=== PATIENT | male | born 1960 | race Caucasian/White ===

== ENCOUNTER 2018-07-22 16:02 | Emergency (ER) | payer OTHER, SELFPAY ==
[2018-07-22 16:05] VITALS: BP 145/76; PULSE 61; RESP 15; O2SAT 97; BMI 31.5
--- NOTE | 2018-07-22 16:20 | ED.WOUNDLAC ---
HPI - Wound/Laceration <Sandhya Schumacher PA-C - Last Filed: 07/22/18 21:04> General Chief Complaint: Wound/Laceration Stated Complaint: LT HAND INJURY Time Seen by Provider: 07/22/18 16:36 Source: patient Mode of arrival: ambulatory Limitations: no limitations History of Present Illness HPI narrative: This 58-year-old gentleman sustained a small cut several hours ago while he was here in the ED changing a bulb in the blanket warmer. He states this was shallow and he just put a Band-Aid on it, has not bled much, however shortly after when he stretched and closed his hand, he felt a crampy, popping sensation, then was not able to fully move his middle finger due to weakness, and painful with some movements. He denies any other injury. Last tetanus vaccine 2013 Related Data Allergies Allergy/AdvReac Type Severity Reaction Status Date / Time No Known Drug Allergies Allergy Verified 07/22/18 16:05 Review of Systems <Sandhya Schumacher PA-C - Last Filed: 07/22/18 21:04> Review of Systems ROS Unobtainable: All systems reviewed & are unremarkable except as noted in HPI and below PFSH <Sandhya Schumacher PA-C - Last Filed: 07/22/18 21:04> Medical History (Updated 07/22/18 @ 18:46 by Sandhya Schumacher PA-C) Benign familial tremor (Chronic) Surgical History (Updated 07/22/18 @ 17:45 by Sandhya Schumacher PA-C) History of carpal tunnel surgery of right wrist (Resolved) Status post eye surgery (Resolved) Social History Smoking Status: Never smoker Social History Smoking Status: Never smoker Exam <Sandhya Schumacher PA-C - Last Filed: 07/22/18 21:04> Narrative Exam Narrative: GENERAL APPEARANCE: Patient sitting comfortably, in no distress. LUNGS: Clear to auscultation bilaterally. HEART: Rate and rhythm regular without murmur, normal S1 and S2, no S3 or S4. MUSCULOSKELETAL: Left wrist no tenderness to palpation, full range of motion. Mild tenderness over the left distal 3rd metacarpal, no tenderness elsewhere over the hand or fingers. He can fully extend and flex all of the fingers. Strength is intact in all fingers all carias against resistance aside from unable to deviate or resist the middle finger medially. No joint effusion. DERMATOLOGIC: There is a 1 cm nonbleeding laceration at the 3/4 MCP joint on the dorsal surface of the hand. NEUROVASCULAR: Left hand fingers are warm and pink, sensation grossly intact Initial Vital Signs Initial Vital Signs: Vital Signs Pulse Rate 61 07/22/18 16:05 Respiratory Rate 15 07/22/18 16:05 Blood Pressure 145/76 H 07/22/18 16:05 Pulse Oximetry 97 07/22/18 16:05 <Alejandra Gamez MD - Last Filed: 07/24/18 08:37> Initial Vital Signs Initial Vital Signs: Vital Signs Pulse Rate 61 07/22/18 16:05 Respiratory Rate 15 07/22/18 16:05 Blood Pressure 145/76 H 07/22/18 16:05 Pulse Oximetry 97 07/22/18 16:05 Course <Sandhya Schumacher PA-C - Last Filed: 07/22/18 21:04> Additional Information: I spoke with on-call orthopedist Dr. Adrian and reviewed findings. The small laceration appears to be less than 2 mm deep, I am not able to pull it open even with pressure. He does have ecchymoses starting to appear around the area prior to discharge. Reviewed exam finding of limited medial deviation of the finger but intact another carias including flexion/extension against resistance. He advised likely due to contusion, likely to peak in the next 72 hours and then start to improve. He did advise follow-up with PCP and Ortho referral after 5-7 days if not resolving. He advised not splinting this for now and use as tolerated. Reviewed this with patient who is agreeable. Return precautions given including for infection. Orders Ordered: Discontinued Medications Diphtheria/Tetanus/Acell Pertussis (Adacel) 0.5 ml IM .ONCE ONE Stop: 07/22/18 17:46 Last Admin: 07/22/18 17:53 Dose: Not Given Vital Signs - 8 hr 07/22/18 16:05 Pulse Rate 61 Respiratory Rate 15 Blood Pressure 145/76 H Pulse Oximetry 97 <Alejandra Gamez MD - Last Filed: 07/24/18 08:37> Orders Ordered: Discontinued Medications Diphtheria/Tetanus/Acell Pertussis (Adacel) 0.5 ml IM .ONCE ONE Stop: 07/22/18 17:46 Last Admin: 07/22/18 17:53 Dose: Not Given Vital Signs - 8 hr 07/22/18 16:05 Pulse Rate 61 Respiratory Rate 15 Blood Pressure 145/76 H Pulse Oximetry 97 MDM - Wound/Laceration <Sandhya Schumacher PA-C - Last Filed: 07/22/18 21:04> Imaging Data hand: Radiologist's impression: [address] [address] XRay Report Signed Patient: Kj Tenorio WMR#: [id number] : 9Acct:[id number] Age/Sex: 58 / MDate of Service: 07/22/18 Loc: ED Accession Number: [id number] Procedure: XR hand LT min 3V Ordering Provider: Sandhya Schumacher P.A-C PROCEDURE: XR HAND LT MIN 3V INDICATIONS: pain after closing hand, unable to move L. MF medially TECHNIQUE: 3 views of the hand(s) acquired. COMPARISON: None. FINDINGS: Bones: No fractures or dislocations. Carpal bones are normally aligned. No suspicious bony lesions. Soft tissues: No suspicious soft tissue calcifications. 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 No fracture found, no erosive arthritis is suspected. Note: The patient reported to the plain film technologist that laceration injury to the third metacarpal-phalangeal joint area has occurred and that he believes he may have injured a tendon. Malalignment from complete tendon laceration is not identified. Depending on the clinical status hand specialist consultation may be warranted and followup by MR scanning may be indicated. Dictated by: John Paul Jovel M.D. on 07/22/2018 at 17:32 Approved by: John Paul Jovel M.D. on 07/22/2018 at 17:34 Discharge Plan Departure Patient Disposition: Home Clinical Impression: Injury of tendon of finger Laceration of hand Qualifiers: Encounter type: initial encounter Foreign body presence: without foreign body Laterality: left Qualified Code(s): S61.412A - Laceration without foreign body of left hand, initial encounter Contusion of hand, left Qualifiers: Encounter type: initial encounter Qualified Code(s): S60.222A - Contusion of left hand, initial encounter Discharge Date/Time: 07/22/18 18:52 Interventions: ED Discharge Assessment Last Done: 07/22/18 18:52 Instructions: DI for Finger Sprain, DI for Minor Laceration Activity Restrictions/Additional Instructions: I spoke with the orthopedic doctor on-call and given the difficulty you have only with moving your finger to the side, he thinks you have probably strained or bumped the tendon causing some temporary inflammation that should peak in the next 2 or 3 days and then start to get better. Your wound appears to be superficial. You can continue ibuprofen every 8 hours for pain and add Tylenol as needed. Monitor the cut for any signs of infection such as increasing redness, draining pus, worsening pain and swelling, or fever and return or see your PCP right away if any. Also if you find you are unable to extend and flex the finger, then you should be seen by your PCP right away. Your PCP should reassess this with you in 5-7 days, and you should see Orthopedics if this is not getting better. Referrals: Romy Ahumada PA-C [[employer]] - Shakir Adrian MD [Physician] -
--- NOTE | 2018-07-22 16:47 | DI.RAD.S_ITS ---
PROCEDURE: XR HAND LT MIN 3V INDICATIONS: pain after closing hand, unable to move L. MF medially TECHNIQUE: 3 views of the hand(s) acquired. COMPARISON: None. FINDINGS: Bones: No fractures or dislocations. Carpal bones are normally aligned. No suspicious bony lesions. Soft tissues: No suspicious soft tissue calcifications. 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 No fracture found, no erosive arthritis is suspected. Note: The patient reported to the plain film technologist that laceration injury to the third metacarpal-phalangeal joint area has occurred and that he believes he may have injured a tendon. Malalignment from complete tendon laceration is not identified. Depending on the clinical status hand specialist consultation may be warranted and followup by MR scanning may be indicated. Dictated by: John Paul Jovel M.D. on 07/22/2018 at 17:32 Approved by: John Paul Jovel M.D. on 07/22/2018 at 17:34
== END 2018-07-22 18:52 | disposition home or self-care (01) ==
PROVIDERS: Emergency Provider Internal Medicine; Family Provider Physician Assistant Medical; PCP Physician Assistant Medical
DX: S61.412A Laceration without foreign body of left hand, initial encounter (principal); S60.222A Contusion of left hand, initial encounter; Y99.0 Civilian activity done for income or pay; Z23 Encounter for immunization
CPT/HCPCS: 73130; 90471; 99283

== ENCOUNTER → 2019-12-14 20:11 | Outpatient (ROUT) | payer BC, SELFPAY ==
[2019-12-14 20:34] LABS: Add Manual Diff / Slide Review NO; Basophils Absolute Auto 0 /uL (0-100); Basophils Percent Auto 0.4 % (0-2); Eosinophils Absolute Auto 200 /uL (0-450); Eosinophils Percent Auto 2.6 % (2-4); Hematocrit 41.4 % (41-53); Hemoglobin 14.4 g/dL (13.5-17.5); Lymphocytes Absolute Auto 1800 /uL (1100-4500); Lymphocytes Percent Auto 31.3 % (25-40); Mean Corpuscular HGB Conc 34.7 % (30-36); Mean Corpuscular Hemoglobin 30.7 PG (26-34); Mean Corpuscular Volume 88.4 fL (80-100); Monocytes Absolute Auto 800 /uL (0-900); Monocytes Percent Auto 13.9 % (3-14); Neutrophils Absolute Auto 3100 /uL (1500-7000); Neutrophils Percent Auto 51.8 % (50-75); Platelet Count 266 X10^3/uL (150-400); Red Blood Cell Count 4.68 X10^6/uL (4.5-5.9); Red Cell Distribution Width 12.5 % (11.6-14.8); White Blood Cell Count 5.9 X10^3/uL (4.5-11.0)
[2019-12-14 20:42] LABS: Alanine Aminotransferase 20 IU/L (<50); Albumin 4.5 g/dL (3.5-5.0); Albumin Globulin Ratio 1.5 (1.0-2.8); Alkaline Phosphatase 43 U/L (38-126); Aspartate Aminotransferase 28 IU/L (17-59); BUN Creatinine Ratio 27.6 (6-22); Bilirubin Total 0.8 mg/dL (0.2-1.3); Blood Urea Nitrogen 21 mg/dL (9-20); Calcium 9.5 mg/dL (8.4-10.2); Carbon Dioxide 28 mmol/L (22-32); Chloride 103 mmol/L (98-107); Cholesterol 175 mg/dL (140-199); Estimated Glomerular Filt Rate > 60.0 mL/min (>60); Glucose 82 mg/dL (80-110); HDL Cholesterol 54 mg/dL (40-60); HEMOLYSIS 19 (0-50); LDL Cholesterol Calculated 108 mg/dL (<100); Potassium 4.3 mmol/L (3.4-5.1); Sodium 138 mmol/L (137-145); Total Protein 7.5 g/dL (6.3-8.2); Triglycerides 66 mg/dL (35-150)
[2019-12-14 21:12] LABS: Prostate Specific Antigen Scrn 0.947 ng/mL (0.1-4.0)
== END ==
PROVIDERS: Family Provider Physician Assistant Medical; PCP Physician Assistant Medical; Visit Provider Physician Assistant
DX: Z12.5 Encounter for screening for malignant neoplasm of prostate (principal); E78.2 Mixed hyperlipidemia
CPT/HCPCS: 80053; 80061; 85025; G0103

== ENCOUNTER → 2021-02-21 07:45 | Outpatient (CLI) | payer OTHER, SELFPAY ==
[2021-02-21 08:52] LABS: Hematocrit 42.6 % (41-53); Hemoglobin 14.4 g/dL (13.5-17.5); Mean Corpuscular HGB Conc 33.9 % (30-36); Mean Corpuscular Hemoglobin 30.1 PG (26-34); Mean Corpuscular Volume 88.8 fL (80-100); Platelet Count 276 X10^3/uL (150-400); Red Blood Cell Count 4.79 X10^6/uL (4.5-5.9); Red Cell Distribution Width 12.3 % (11.6-14.8); White Blood Cell Count 6.5 X10^3/uL (4.5-11.0)
[2021-02-21 08:58] LABS: Alanine Aminotransferase 34 IU/L (<50); Albumin 4.2 g/dL (3.5-5.0); Albumin Globulin Ratio 1.4 (1.0-2.8); Alkaline Phosphatase 31 U/L (38-126); Aspartate Aminotransferase 26 IU/L (17-59); BUN Creatinine Ratio 18.8 (6-22); Bilirubin Total 0.8 mg/dL (0.2-1.3); Blood Urea Nitrogen 18 mg/dL (9-20); Calcium 9.5 mg/dL (8.4-10.2); Carbon Dioxide 32 mmol/L (22-32); Chloride 104 mmol/L (98-107); Cholesterol 178 mg/dL (140-199); Estimated Glomerular Filt Rate > 60.0 mL/min (>60); Globulin 3.1 g/dL (1.7-4.1); Glucose 119 mg/dL (80-110); HDL Cholesterol 48 mg/dL (40-60); HEMOLYSIS < 15 (0-50); LDL Cholesterol Calculated 105 mg/dL (<100); Potassium 4.2 mmol/L (3.4-5.1); Sodium 138 mmol/L (137-145); Total Protein 7.3 g/dL (6.3-8.2); Triglycerides 123 mg/dL (35-150)
[2021-02-23 16:47] LABS: HIV 1 & 2 Ab/Ag 4th Gen Combo NEGATIVE (NEGATIVE); Hep C Virus Ab w/Reflex Quant NEGATIVE s/c (NEGATIVE)
== END ==
PROVIDERS: Family Provider Physician Assistant Medical; PCP Physician Assistant Medical; Referring Provider Student in an Organized Health Care Education/Training Program; Visit Provider Student in an Organized Health Care Education/Training Program
DX: Z00.00 Encounter for general adult medical examination without abnormal findings (principal); Z13.220 Encounter for screening for lipoid disorders; Z11.59 Encounter for screening for other viral diseases; Z11.4 Encounter for screening for human immunodeficiency virus [HIV]
CPT/HCPCS: 36415; 80053; 80061; 85027; 86803; 87389

== ENCOUNTER 2021-07-08 14:20 | Emergency (ER) | payer OTHER, SELFPAY ==
[2021-07-08] VITALS (10 sets, daily range): BP systolic 115–171; BP diastolic 71–78; PULSE 60–73; RESP 14; TEMP 35.9; O2SAT 96–99; BMI 32.3
--- NOTE | 2021-07-08 15:38 | DI.CT.S_ITS ---
PROCEDURE: CT ABDOMEN PELVIS W CON INDICATIONS: Generalized abdominal pain TECHNIQUE: After the administration of oral and IV contrast, axial sections were acquired from the lung bases to the pubic symphysis. Coronal and sagittal reformats were performed. For radiation dose reduction, the following was used: automated exposure control, adjustment of mA and/or kV according to patient size. COMPARISON: None. FINDINGS: Image quality: Excellent. Lung bases: Unremarkable. Heart: No significant findings. ABDOMEN: Liver: Diffuse fatty liver infiltration is noted. The liver is normal in size and demonstrates no suspicious lesions. A water density left liver cyst is seen measuring 12 mm. Gallbladder: Unremarkable. Biliary ducts: Unremarkable. Pancreas: Unremarkable. Spleen: Unremarkable. Adrenal Glands: Unremarkable. Kidneys and Ureters: Unremarkable. Stomach and Bowel: Generalized prominence of the small bowel loops can be seen, which measure up to 3.9 cm distally. There is no transition point. The small bowel loops demonstrate generalized thickening and hyperenhancement. Mild wall thickening and hyperenhancement can be seen involving the colon, particularly proximally. No significant gastric abnormality is seen. Peritoneum: No abnormal intraperitoneal fluid. No free air. Ventral Wall: No hernia. Abdominal Nodes: No retroperitoneal or mesenteric adenopathy by size criteria. Vessels: Aorta and inferior vena cava are normal in size. PELVIS: Pelvic Organs: Unremarkable. Bladder: Unremarkable. Pelvic Nodes: No enlarged lymph nodes. Miscellaneous: Bilateral hernias are seen Bones: Unremarkable. IMPRESSION: Generalized wall thickening and hyperenhancement can be seen of the small bowel, with milder involvement of the colon. Generalized enterocolitis is suspected. Please correlate with potential causes. No findings of perforation or abscess can be seen. Incidental note is made of: Fatty liver infiltration Left liver cyst Bilateral fat containing inguinal hernias Dictated by: Michael Huynh M.D. on 07/08/2021 at 15:52 Approved by: Michael Huynh M.D. on 07/08/2021 at 15:54
--- NOTE | 2021-07-08 15:38 | ED.GENADULT ---
HPI - General Adult General Chief complaint: Abdominal Pain Stated complaint: Stomach Flu, Inflammation in Colon Time Seen by Provider: 07/08/21 15:06 Source: patient Mode of arrival: Ambulatory Limitations: no limitations History of Present Illness HPI narrative: 61-year-old male who is here for evaluation approximately 1 week of diarrhea and also he states his inflammation is abdomen. Symptoms started 1 week ago and was associated with vomiting but the nausea vomiting have resolved. He continues to have diarrhea. No recent travel. No recent antibiotic use. He states that he feels like his abdomen is very distended and inflamed. No urinary symptoms. Has not tried anything for the symptoms prior to arrival. He did have an appointment with a telemedicine provider who told him to come to the emergency department for evaluation. Related Data Allergies Allergy/AdvReac Type Severity Reaction Status Date / Time No Known Drug Allergies Allergy Verified 07/08/21 14:25 Review of Systems Constitutional Constitutional: Reports system reviewed and no additional complaints, except as documented Cardiovascular Cardiovascular: Reports system reviewed and no additional complaints, except as documented Respiratory Respiratory: Reports system reviewed and no additional complaints, except as documented Gastrointestinal Gastrointestinal: Reports as per HPI and Reports system reviewed and no additional complaints, except as documented Genitourinary Genitourinary: Reports system reviewed and no additional complaints, except as documented Integumentary/Breasts Skin/Breast: Reports system reviewed and no additional complaints, except as documented Neurologic Neurologic: Reports system reviewed and no additional complaints, except as documented Hematologic/Lymphatic On Anticoagulants: No Patient History Medical History Benign familial tremor Surgical History (Updated 07/22/18 @ 17:45 by Sandhya Schumacher PA-C) History of carpal tunnel surgery of right wrist Status post eye surgery Social History Smoking Status: Never smoker Smoking Status: Never smoker alcohol intake frequency: holidays/special occasions only Substance Use Type: does not use Exam Initial Vital Signs Initial Vital Signs: Vital Signs Temperature 96.7 F L 07/08/21 14:25 Pulse Rate 66 07/08/21 14:25 Respiratory Rate 14 07/08/21 14:25 Blood Pressure 171/78 H 07/08/21 14:25 Pulse Oximetry 97 07/08/21 14:25 HENMT Head: normal to inspection and normocephalic Resp Effort & Inspection: normal respiratory effort Auscultation: clear to auscultation bilaterally Cardio Rate: regular rate Rhythm: regular rhythm GI Inspection: normal to inspection Palpation: soft, No firm, No guarding and tender Skin General: no rashes or lesions noted Neuro General: patient alert, patient awake and moves all extremities Extrem General: normal to inspection and capillary refill normal Psych Appearance: grossly normal and well kempt Course Orders Ordered: ED Orders 07/08/21 15:26 EKG-12 Lead Stat 07/08/21 15:36 Complete Blood Count AUTO DIFF Stat Comprehensive Metabolic Panel Stat Lipase Stat 07/08/21 15:38 CT abdomen pelvis w con Stat Discontinued Medications Sodium Chloride (Normal Saline 0.9%) 1,000 mls @ 1,000 mls/hr IV BOLUS ONE Stop: 07/08/21 16:37 Last Admin: 07/08/21 16:07 Dose: 1,000 mls/hr Documented by: JOCELYN Vital Signs Vital signs: Vital Signs - 8 hr 07/08/21 14:25 07/08/21 15:20 07/08/21 15:22 Temperature 96.7 F L Pulse Rate 66 63 64 Respiratory Rate 14 Blood Pressure 171/78 H 126/76 Pulse Oximetry 97 98 96 07/08/21 15:30 07/08/21 16:00 07/08/21 16:04 Temperature Pulse Rate 60 60 61 Respiratory Rate Blood Pressure 115/71 135/73 Pulse Oximetry 96 96 96 07/08/21 16:30 07/08/21 16:44 Temperature Pulse Rate 61 73 Respiratory Rate Blood Pressure 140/72 137/77 Pulse Oximetry 97 98 Medical Decision Making Lab Data Lab results reviewed: Yes I reviewed the patient's lab results. Result diagrams: 07/08/21 15:36 07/08/21 15:36 Labs: Lab Results 07/08/21 07/08/21 Range/Units 15:36 15:36 WBC 8.8 (4.5-11.0) X10^3/uL RBC 4.88 (4.5-5.9) X10^6/uL Hgb 15.0 (13.5-17.5) g/dL Hct 42.3 (41-53) % MCV 86.7 (80-100) fL MCH 30.8 (26-34) PG MCHC 35.5 (30-36) % RDW 12.3 (11.6-14.8) % Plt Count 259 (150-400) X10^3/uL Neut % (Auto) 64.8 (50-75) % Lymph % (Auto) 20.1 L (25-40) % [place] % (Auto) 13.1 (3-14) % Eos % (Auto) 1.6 L (2-4) % Baso % (Auto) 0.4 (0-2) % Neut # (Auto) 5700 (4809-2480) /uL Lymph # (Auto) 1800 (5704-3794) /uL [place] # (Auto) 1200 H (0-900) /uL Eos # (Auto) 100 (0-450) /uL Baso # (Auto) 0 (0-100) /uL Sodium 138 (137-145) mmol/L Potassium 4.0 (3.4-5.1) mmol/L Chloride 106 (98-107) mmol/L Carbon Dioxide 24 (22-32) mmol/L BUN 19 (9-20) mg/dL Creatinine 0.85 (0.66-1.25) mg/dL Estimated GFR > 60 (>60) mL/min BUN/Creatinine Ratio 22.4 H (6-22) Glucose 104 (80-110) mg/dL Calcium 9.1 (8.4-10.2) mg/dL Total Bilirubin 1.0 (0.2-1.3) mg/dL AST 69 H (17-59) IU/L ALT 130 H (<50) IU/L Alkaline Phosphatase 45 (38-126) U/L Total Protein 7.4 (6.3-8.2) g/dL Albumin 4.1 (3.5-5.0) g/dL Globulin 3.3 (1.7-4.1) g/dL Albumin/Globulin Ratio 1.2 (1.0-2.8) Lipase 47 (23-300) U/L Imaging Data CT scan - abdomen/pelvis: Radiologist's Impression: [address] [address] [address] Scan Report Signed Patient: Kj Tenorio MR#: [id number] : 1960 Acct:[id number] Age/Sex: 61 / M Date of Service: 07/08/21 Loc: ED Accession Number: [id number] ?? Procedure: CT abdomen pelvis w con Ordering Provider: Bharath Montoya D.O. PROCEDURE:? CT ABDOMEN PELVIS W CON ? INDICATIONS:? Generalized abdominal pain ? TECHNIQUE:? After the administration of oral and IV contrast, axial sections were acquired from the lung bases to the pubic symphysis.? Coronal and sagittal reformats were performed.? For radiation dose reduction, the following was used:? automated exposure control, adjustment of mA and/or kV according to patient size. ? COMPARISON:? None. ? FINDINGS:? Image quality:? Excellent.? ? Lung bases:? Unremarkable.? ? Heart:? No significant findings. ? ? ABDOMEN: Liver: Diffuse fatty liver infiltration is noted.? The liver is normal in size and demonstrates no suspicious lesions.? A water density left liver cyst is seen measuring 12 mm. Gallbladder:? Unremarkable.? ? Biliary ducts:? Unremarkable.? ? Pancreas:? Unremarkable.? ? Spleen:? Unremarkable.? ? Adrenal Glands:? Unremarkable.? ? Kidneys and Ureters:? Unremarkable.? ? ? Stomach and Bowel:? Generalized prominence of the small bowel loops can be seen, which measure up to 3.9 cm distally.? There is no transition point.? The small bowel loops demonstrate generalized thickening and hyperenhancement. Mild wall thickening and hyperenhancement can be seen involving the colon, particularly proximally. No significant gastric abnormality is seen. Peritoneum:? No abnormal intraperitoneal fluid.? No free air.? ? Ventral Wall: ? No hernia.? Abdominal Nodes:? No retroperitoneal or mesenteric adenopathy by size criteria.? Vessels:? Aorta and inferior vena cava are normal in size.? ? PELVIS: Pelvic Organs:? Unremarkable.? ? Bladder:? Unremarkable.? ? Pelvic Nodes: No enlarged lymph nodes.? Miscellaneous:? Bilateral hernias are seen ? Bones:? Unremarkable.? IMPRESSION:? ? Generalized wall thickening and hyperenhancement can be seen of the small bowel, with milder involvement of the colon.? Generalized enterocolitis is suspected.? Please correlate with potential causes. ? No findings of perforation or abscess can be seen. ? ? ? Incidental note is made of: Fatty liver infiltration Left liver cyst Bilateral fat containing inguinal hernias ? Dictated by: Michael Huynh M.D. on 07/08/2021 at 15:52 ? ? Approved by: Michael Huynh M.D. on 07/08/2021 at 15:54? MDM Narrative Medical decision making narrative: Patient does have a benign exam. His labs are unremarkable. CT scan shows enteritis which is consistent with his presenting symptoms. No indication for antibiotics. He was unable to give us a stool sample in the ER. Will discharge home with instructions to contact his primary provider for follow-up especially if his diarrhea does not improve over the next week. Instructed increase his fluid intake. No further workup required in the emergency department. He is given return precautions. He expressed understanding and agreement plan. Discharge Plan Departure Patient Disposition: Home Clinical Impression: Enteritis, Diarrhea Instructions: Diarrhea Activity Restrictions/Additional Instructions: I do recommend that you increase your fluid intake. If your symptoms have not improved of the next 7-10 days I do recommend you contact your primary doctor because the next step would be to obtain stool samples. Return to the emergency department for any new symptoms. Referrals: Romy Ahumada PA-C [Primary Care Provider] -
[2021-07-08 15:46] LABS: Add Manual Diff / Slide Review NO; Basophils Absolute Auto 0 /uL (0-100); Basophils Percent Auto 0.4 % (0-2); Eosinophils Absolute Auto 100 /uL (0-450); Eosinophils Percent Auto 1.6 % (2-4); Hematocrit 42.3 % (41-53); Lymphocytes Absolute Auto 1800 /uL (1100-4500); Lymphocytes Percent Auto 20.1 % (25-40); Mean Corpuscular HGB Conc 35.5 % (30-36); Mean Corpuscular Hemoglobin 30.8 PG (26-34); Mean Corpuscular Volume 86.7 fL (80-100); Monocytes Absolute Auto 1200 /uL (0-900); Monocytes Percent Auto 13.1 % (3-14); Neutrophils Absolute Auto 5700 /uL (1500-7000); Neutrophils Percent Auto 64.8 % (50-75); Platelet Count 259 X10^3/uL (150-400); Red Blood Cell Count 4.88 X10^6/uL (4.5-5.9); Red Cell Distribution Width 12.3 % (11.6-14.8); White Blood Cell Count 8.8 X10^3/uL (4.5-11.0)
[2021-07-08 16:00] LABS: Alanine Aminotransferase 130 IU/L (<50); Albumin 4.1 g/dL (3.5-5.0); Albumin Globulin Ratio 1.2 (1.0-2.8); Alkaline Phosphatase 45 U/L (38-126); Aspartate Aminotransferase 69 IU/L (17-59); BUN Creatinine Ratio 22.4 (6-22); Blood Urea Nitrogen 19 mg/dL (9-20); Calcium 9.1 mg/dL (8.4-10.2); Carbon Dioxide 24 mmol/L (22-32); Chloride 106 mmol/L (98-107); Estimated Glomerular Filt Rate > 60 mL/min (>60); Globulin 3.3 g/dL (1.7-4.1); Glucose 104 mg/dL (80-110); HEMOLYSIS 22 (0-50); Lipase 47 U/L (23-300); Sodium 138 mmol/L (137-145); Total Protein 7.4 g/dL (6.3-8.2)
[2021-07-08] MEDS: SODIUM CHLORIDE 0.9% 1,000 ML 1000 ML IV (16:07)
== END 2021-07-08 17:21 | disposition home or self-care (01) ==
PROVIDERS: Emergency Provider Emergency Medicine; Family Provider Physician Assistant Medical; PCP Physician Assistant
DX: K52.9 Noninfective gastroenteritis and colitis, unspecified (principal)
CPT/HCPCS: 36415; 74177; 80053; 83690; 85025; 99284; Q9967

== ENCOUNTER → 2023-04-12 09:48 | Outpatient (CLI) | payer BC, SELFPAY ==
[2023-04-12 10:39] LABS: Add Manual Diff / Slide Review NO; Basophils Absolute Auto 0 /uL (0-100); Basophils Percent Auto 0.4 % (0-2); Eosinophils Absolute Auto 100 /uL (0-450); Eosinophils Percent Auto 1.9 % (2-4); Hematocrit 42.7 % (41-53); Hemoglobin 14.7 g/dL (13.5-17.5); Lymphocytes Absolute Auto 1700 /uL (1100-4500); Lymphocytes Percent Auto 27.9 % (25-40); Mean Corpuscular HGB Conc 34.5 % (30-36); Mean Corpuscular Hemoglobin 30.4 PG (26-34); Monocytes Absolute Auto 800 /uL (0-900); Monocytes Percent Auto 13.3 % (3-14); Neutrophils Absolute Auto 3500 /uL (1500-7000); Neutrophils Percent Auto 56.5 % (50-75); Platelet Count 251 X10^3/uL (150-400); Red Blood Cell Count 4.85 X10^6/uL (4.5-5.9); Red Cell Distribution Width 12.6 % (11.6-14.8); White Blood Cell Count 6.1 X10^3/uL (4.5-11.0)
[2023-04-12 11:00] LABS: Alanine Aminotransferase 28 IU/L (<50); Albumin 4.3 g/dL (3.5-5.0); Albumin Globulin Ratio 1.4 (1.0-2.8); Alkaline Phosphatase 44 U/L (38-126); Aspartate Aminotransferase 27 IU/L (17-59); BUN Creatinine Ratio 16.2 (6-22); Bilirubin Total 1.2 mg/dL (0.2-1.3); Blood Urea Nitrogen 17 mg/dL (9-20); Calcium 9.4 mg/dL (8.4-10.2); Carbon Dioxide 27 mmol/L (22-32); Chloride 103 mmol/L (98-107); Cholesterol 152 mg/dL (140-199); Estimated Glomerular Filt Rate > 60 mL/min (>60); Globulin 3.1 g/dL (1.7-4.1); Glucose 105 mg/dL (80-110); HDL Cholesterol 47 mg/dL (40-60); HEMOLYSIS < 15 (0-50); LDL Cholesterol Calculated 88 mg/dL (<100); Potassium 4.8 mmol/L (3.4-5.1); Sodium 140 mmol/L (137-145); Total Protein 7.4 g/dL (6.3-8.2); Triglycerides 86 mg/dL (35-150)
== END ==
PROVIDERS: Family Provider Physician Assistant Medical; PCP Student in an Organized Health Care Education/Training Program; Referring Provider Student in an Organized Health Care Education/Training Program; Visit Provider Student in an Organized Health Care Education/Training Program
DX: E78.2 Mixed hyperlipidemia (principal)
CPT/HCPCS: 36415; 80053; 80061; 85025